=== PATIENT | female | born 1980 | race Hispanic/Latino ===

== ENCOUNTER 2021-07-15 15:56 | Outpatient (CLI) | payer BC, SELFPAY ==
--- NOTE | 2021-07-15 | ECG_ITS ---
Measurements Intervals Anabel Rate: 98 P: 67 WI: 154 QRS: 65 QRSD: 85 T: 45 QT: 305 QTc: 390 Interpretive Statements SINUS RHYTHM NONSPECIFIC ST ABNORMALITY ABNORMAL EKG NO PREVIOUS ECG AVAILABLE FOR COMPARISON Electronically Signed On 07-15-2021 16:35:36 [employer] MANAGER by Ruddy Fermin M.D.
--- NOTE | ~2021-07-15 | XR_ITS ---
XR chest 2V DATE: 07/15/2021 16:41 INDICATION: Cough, tachycardia TECHNIQUE: PA and lateral views COMPARISON: None FINDINGS: Normal heart size. No hilar or mediastinal enlargement. No pulmonary infiltrate or consolid ation, pleural effusion or pulmonary vascular congestion or pneumothorax. Included skeletal structure s are unremarkable. IMPRESSION: No active cardiopulmonary disease Reviewed, dictated and finalized at location A. [facility] [employer]
== END 2021-07-15 15:57 | disposition home or self-care (01) ==
LOC: ANHCARD 16:02
PROVIDERS: PCP Physician Assistant; Visit Provider Physician Assistant
DX: R00.0 Tachycardia, unspecified (principal); R05.9 Cough, unspecified
CPT/HCPCS: 71046; 93005

== ENCOUNTER 2021-10-21 22:09 | Emergency (ER) | payer BC, SELFPAY ==
--- NOTE | ~2021-10-21 | CT_ITS ---
EXAMINATION: CT abdomen pelvis wo con DATE: 10/22/2021 00:27 INDICATION: Right flank pain. Nausea. TECHNIQUE: Computed tomography (CT) of the abdomen and pelvis was performed without intravenous contr ast. Automated exposure control and iterative reconstruction technique were employed. The dose-length product was 515.48 mGy-cm. COMPARISON: CT abdomen and pelvis 03/02/2019 FINDINGS: The visualized portions of the lung bases demonstrate mild atelectasis. No pleural effusion . The heart size is normal. No pericardial effusion. The liver, gallbladder, spleen, pancreas, adrena l glands, and kidneys are normal. There is no urolithiasis. There are no dilated loops of bowel. The appendix is normal. There are no pathologically enlarged lymph nodes. There is no free intraperitonea l fluid. There is mild lumbar spondylosis. IMPRESSION: 1. No urolithiasis. No etiology for the patient's symptoms. Reviewed, dictated and finalized at location A.
[2021-10-21 22:16] VITALS: BP 112/63; PULSE 73; RESP 16; TEMP 36.2; O2SAT 100
[2021-10-21 23:29] LABS: Basophils Absolute Auto 0.1 K/mm3 (0.0-0.1); Basophils Percent Auto 0.9 % (0.2-1.2); Eosinophils Absolute Auto 0.3 K/mm3 (0-0.3); Eosinophils Percent Auto 2.9 % (0-4.4); Hematocrit 39.8 % (37.0-47.0); Hemoglobin 12.9 g/dL (12.0-15.0); Immature Granulocyte Absolute 0.03 K/mm3 (0.00-0.031); Immature Granulocyte Percent A 0.3 % (0-0.5); Lymphocytes Absolute Auto 3.43 K/mm3 (0.9-3.2); Lymphocytes Percent Auto 32.5 % (18.3-44.2); Mean Corpuscular HGB Conc 32.4 g/dl (32-36); Mean Corpuscular Hemoglobin 28.3 pg (26-34); Mean Corpuscular Volume 87.3 fl (80-100); Mean Platelet Volume 9.8 fl (7.4-10.4); Monocytes Absolute Auto 0.8 K/mm3 (0.1-0.6); Monocytes Percent Auto 7.3 % (2.6-8.5); Neutrophils Absolute Auto 5.9 K/mm3 (1.3-6.7); Neutrophils Percent Auto 56.1 % (45.5-73.1); Platelet Count Result 275 k/mm3 (150-375); Red Blood Count 4.56 M/mm3 (4.2-5.4); White Blood Count 10.6 K/mm3 (4.5-10.0)
[2021-10-21 23:39] LABS: Appearance Urine Clear (Clear); Bilirubin Urine Negative (Negative); Color Urine Yellow (Yellow); Glucose Urine UA Negative (Negative); Ketones Urine Negative (Negative); Leukocyte Esterase Ur Negative LEU/UL (Negative); Nitrate Urine Negative (Negative); Protein Urine Negative (Negative); Urobilinogen Urine 0.2 mg/dL (<2.0)
[2021-10-21 23:45] LABS: Alanine Aminotransferase 29 U/L (6-35); Albumin Level 4.4 g/dL (3.5-5.1); Alkaline Phosphatase 106 U/L (38-126); Anion Gap 7 mmol/L (8-16); Aspartate Amino Transferase 30 U/L (14-36); Bilirubin,Total 0.2 mg/dL (0.2-1.3); Blood Urea Nitrogen 13 mg/dL (7-17); Calcium 9.2 mg/dL (8.4-10.2); Carbon Dioxide 27 mmol/L (22-30); Chloride 104 mmol/L (98-107); Estimated CRCL calculation 99 ml/min; Estimated Glomerular Filt Rate > 60; Glucose 91 mg/dL (65-110); Lipase 230 U/L (23-300); Potassium 3.5 mmol/L (3.4-5.0); Sodium 138 mmol/L (137-145)
[2021-10-21 23:46] LABS: Add Urine Microscopic? YES; Blood Urine Trace (Negative)
[2021-10-21 23:52] LABS: Pregnancy On Board Control Positive; Urine Pregnancy Test Negative
--- NOTE | 2021-10-22 00:25 | ED.ABDPAIN ---
HPI - Abdominal Pain General Chief Complaint: Abdominal Pain Stated Complaint: right flank pain Time Seen by Provider: 10/21/21 22:35 History of Present Illness HPI narrative: Patient is a 40-year-old female here for evaluation of right-sided flank pain for the past day. Patient states that the pain is intermittent in nature, begins in her right flank and does radiate around to the front in her groin. Patient states the pain comes on with certain positions. She does note a history of similar previous pain with her kidney stones, she was last diagnosed by ultrasound in July 2019. She saw her primary care provider today, who attributed her pain today to probable kidney stones, and was told to come to the ED if her pain worsens. Patient took 800 mg of ibuprofen prior to arrival to ED. Denies fevers, chills, dysuria, hematuria, changes to bowel movements, nausea or vomiting. Related Data Home Medications Medication Instructions Recorded Confirmed albuterol 90 mcg/actuation aerosol mcg inhalation 10/21/21 inhaler Allergies Allergy/AdvReac Type Severity Reaction Status Date / Time No Known Allergies Allergy Unverified 10/21/21 22:20 Review of Systems Review of Systems: Gen: Denies fevers or chills Eyes: Denies eye pain or visual change ENT: Denies congestion Respiratory: Denies shortness of breath or cough CV: Denies chest pain or palpitations GI: Denies abdominal pain nausea, emesis or diarrhea : denies burning, urgency, frequency or hematuria Musculoskeletal: Reports low back pain Neuro: Denies numbness, tingling, weakness or focal weakness Skin: Denies rash Except as documented, all other systems reviewed and negative Exam Narrative: Gen: Alert, oriented, no acute distress Eyes: EOMI, no icterus Pulm: Respirations even and unlabored, symmetric thorax expansion, no audible stridor or visible cyanosis CV: Regular rate per telemetry GI: No abdominal distention, no guarding, no tenderness to palpation. No CVA tenderness. Neuro: AOx4, moves all extremities without apparent difficulty or weakness, follows commands MSK: No tenderness to C, T, or L-spine. No paraspinal muscle tenderness. Full range of motion of thorax without pain. Skin: No jaundice, no visible bruising, rashes, lesions or wounds on exposed skin Psych: Normal mood/affect, insight/judgement good, adequate fund of knowledge, recent/remote memory intact Course Vital Signs Vital signs: Vital Signs Temperature 97.2 F L 10/21/21 22:16 Pulse Rate 73 10/21/21 22:16 Respiratory Rate 16 10/21/21 22:16 Blood Pressure 112/63 10/21/21 22:16 Pulse Oximetry 100 10/21/21 22:16 Oxygen Delivery Room Air 10/21/21 22:16 Temperature 97.2 F L 10/21/21 22:16 Pulse Rate 63 10/22/21 01:25 Respiratory Rate 18 10/22/21 01:25 Blood Pressure 112/74 10/22/21 01:25 Pulse Oximetry 99 10/22/21 01:25 Oxygen Delivery Room Air 10/21/21 22:16 MDM - Abdominal Pain MDM Narrative Medical decision making narrative: 40-year-old female here for evaluation of low back pain today. Patient has normal vital signs, is nontoxic-appearing, labs including UA unremarkable for acute process. CT scan without explanation for patient's symptoms. Patient presents with back pain most consistent with muscle sprain. Differential diagnoses includes lumbago versus musculoskeletal spasm / strain versus sciatica. Less likely sciatica as straight leg raise test was negative. No back pain red flags on history or physical. Presentation not consistent with malignancy (lack of history of malignancy, lack of B symptoms), fracture (no trauma, no bony tenderness to palpation), cauda equina (no bowel or urinary incontinence/retention, no saddle anesthesia, no distal weakness), AAA, viscus perforation, osteomyelitis or epidural abscess (no IVDU, vertebral tenderness), renal colic, pyelonephritis (afebrile, no CVAT, no urinary symptoms, negative CT). Patient asymptomatic thr
[2021-10-22 01:25] VITALS: BP 112/74; PULSE 63; RESP 18; O2SAT 99
== END 2021-10-22 01:32 | disposition home or self-care (01) ==
PROVIDERS: Physician Assistant; Emergency Provider Emergency Medicine; PCP Physician Assistant
DX: S33.5XXA Sprain of ligaments of lumbar spine, initial encounter (principal); Z87.442 Personal history of urinary calculi; X58.XXXA Exposure to other specified factors, initial encounter
CPT/HCPCS: 36415; 74176; 80053; 81001; 81025; 83690; 85025; 99284